=== PATIENT | female | born 1995 | race Caucasian/White ===

== ENCOUNTER 2017-10-08 07:53 | Emergency (ER) | payer BC, SELFPAY ==
--- NOTE | 2017-10-08 08:00 | DI.REPORT_ITS ---
SYMPTOM/DIAGNOSIS: PAIN LEFT WRIST: No fracture or dislocation is seen. IMPRESSION: Negative left wrist.
[2017-10-08 08:09] VITALS: BP 126/79; PULSE 89; RESP 16; TEMP 37; O2SAT 97
--- NOTE | 2017-10-08 08:34 | ED.GENADUL ---
Disposition Clinical Impression: Left wrist pain, rule out scaphoid fract Disposition: HOME Condition: Good Additional Instructions: As we discussed, we will keep your wrist immobilized pending orthopedic follow-up. Orthopedic office number is [phone]. Please call them Tuesday afternoon or Tuesday. Ice through the splint right reduce pain and swelling. Work note provided. Tylenol and/or ibuprofen as needed for pain. Return if he developed cold, blue, numbness or tingling of the fingertips, increasing pain, or any other acute concerns Forms: Work Release Medical Decision Making - Radiology Data Radiology results: image reviewed - Medical Decision Making 22-year-old female with fall and left wrist at work. Vital signs are unremarkable. She is tender in the radial aspect of her wrist, most specifically with axial loading of the thumb and resisted supination. X-ray does not show clear fracture, question slight fracture line on the oblique film, number 2 out of 3. Discussed with her management including immobilization with below the elbow thumb spica. We will have her follow-up with orthopedics. She is stable for discharge. Discussed with her home management as well as return precautions. History of Present Illness - General Chief complaint: Orthopedic Stated complaint: LEFT WRIST INJURY Time Seen by Provider: 10/08/17 08:32 Source: patient, RN notes reviewed Mode of arrival: ambulatory Limitations: no limitations - History of Present Illness Initial comments: Left wrist pain: 22-year-old female went to work this morning at local [employer]. Tripped, fell forward, landing on outstretched left hand. She had the immediate onset of a moderate, achy, nonradiating left wrist pain is been worse with movement, improved with rest. She did not have numbness, tingling, or injured herself in any other way. She has otherwise recently been well. - Related Data Control Pill DAILY 10/08/17 metFORMIN [Glucophage] 500 g PO BID 10/08/17 Allergies Allergy/AdvReac Type Severity Reaction Status Date / Time No Known Allergies Allergy Unverified 10/08/17 08:11 Review of Systems Other: 6 systems reviewed, otherwise negative Past Medical History - Past Medical History See nursing note General Exam - General Limitations: no limitations General appearance: alert, in no apparent distress - Head Head exam: Present: atraumatic, normocephalic - Respiratory Respiratory exam: Absent: respiratory distress - Extremities Exam Extremities exam: Present: full ROM, tenderness, normal capillary refill, other (Left wrist is tender across the metacarpals. She is most tender at the radial aspect of the wrist, with axial loading of the thumb, and with resisted supination. Sensation intact throughout. Motor is intact but limited by pain.) - Neurological Exam Neurological exam: Present: alert, oriented X3 - Psychiatric Psychiatric exam: Present: normal affect, normal mood - Skin Skin exam: Present: warm, dry, intact Course Vital Signs - 24 hr 10/08/17 08:09 Temperature 37 C Pulse 89 Respiratory 16 Rate Blood Pressure 126/79 Pulse Oximetry 97
--- NOTE | 2017-10-08 09:29 | DI.VRAD_ITS ---
EXAM: XR Left Wrist Complete, 3 or more Views EXAM DATE/TIME: 10/08/2017 8:24 AM CLINICAL HISTORY: 22 years old, female; Pain; Wrist; Left; Patient HX: Lt. Wrist pain after fall. TECHNIQUE: XR Left wrist 3 or more views. COMPARISON: CR - RIGHT THUMB 2012-05-21 07:42 FINDINGS: Bones/joints: Normal. Soft tissues: Normal. IMPRESSION: No acute findings. Dictated and Authenticated by: Noah Randle MD. Ordering:STEPHANE KIM MD
== END 2017-10-08 09:07 | disposition home or self-care (01) ==
PROVIDERS: Emergency Provider Emergency Medicine; PCP Family Medicine
DX: M25.532 Pain in left wrist (principal); W18.30XA Fall on same level, unspecified, initial encounter; Y99.0 Civilian activity done for income or pay
CPT/HCPCS: 29125; 99283; 73110; L3807

== ENCOUNTER 2018-05-25 15:03 | Emergency (ER) | payer BC, SELFPAY ==
[2018-05-25 15:18] VITALS: BP 154/87; PULSE 95; RESP 16; TEMP 36.7; O2SAT 98
--- NOTE | 2018-05-25 15:49 | W.ED.GENAD ---
Discharge Plan Disposition Patient Disposition: HOME Condition: Good Discharge Details Chief Complaint: Sorethroat Clinical Impression: Strep throat Primary Care Provider: Elise Edwadrs ED Provider: Arnel Barroso Home Meds and New Rx's Prescriptions: New amoxicillin 500 mg capsule 500 mg PO BID Qty: 14 RF: 0 No Action spironolactone 25 MG tablet 25 mg PO BID RF: 0 metformin 500 MG tablet 500 g PO BID RF: 0 Control Pill DAILY RF: 0 Discharge Instructions Instructions: Upper Respiratory Infection (ED) Additional Instructions: Please take the medication as directed. Take Tylenol and Motrin as needed for pain. If you notice any worsening of your symptoms, or any new symptoms such as vomiting, diarrhea, fever, chills, shortness of breath, chest pain, numbness, weakness, or fainting , please return immediately to the emergency department for reevaluation. Please follow up with your primary care provider as soon as possible for reassessment and reevaluation. As always, it was a pleasure participating in your medical care today. Referrals: Elise Edwards MD [Primary Care Provider] - Discharge Data Discharge Date/Time-TO BE ENTERED AT DEPARTURE: 05/25/18 16:33 Medical Decision Making This is a pleasant 22-year-old female with no significant past medical history who presents with complaint of sore throat for the last 2 days. No concerning red flags for peritonsillar abscess, airway compromise or other significant abnormality. Physical exam is otherwise unremarkable aside for erythema in the posterior oropharynx. Strep test is positive. She has no antibiotic allergies. We will prescribe amoxicillin for treatment of strep throat. We discussed red flags which to return, the importance of NSAIDs, and close follow-up. I have extensively reviewed the treatment plan and discharge instructions with the patient. I have addressed all patient concerns at this time. The patient was made aware of what symptoms to monitor for that would warrant a return to the emergency department. Discussed the plan with the patient, they demonstrate verbal understanding and agreement with our assessment and plan at this time. HPI General Date/Time Provider Initiated Documentation: 05/25/18 15:45. HPI Narrative: This is a pleasant 22-year-old female who presents with sore throat for the last 2 days. She is able to eat and drink well, mild pain with swallowing. She denies any headache, neck pain, fever, chills, nausea, vomiting, or diarrhea. She has no previous surgical history of tonsillectomy. She does admit to other sick contacts at her work. She denies any other complaints or modifying factors at this time. No IV or illicit drug use. No pertinent family history. Related Data Home Medications Medication Instructions Recorded Confirmed Control Pill DAILY 10/08/17 metformin 500 g PO BID 10/08/17 05/25/18 spironolactone 25 mg PO BID tab-cap 10/19/17 05/25/18 amoxicillin 500 mg PO BID #14 cap 05/25/18 Previous Rx's Medication Instructions Recorded amoxicillin 500 mg PO BID #14 cap 05/25/18 Allergies Allergy/AdvReac Type Severity Reaction Status Date / Time No Known Allergies Allergy Unverified 05/25/18 15:19 General Stated Complaint: Sorethroat CHRISTINE: 4 Review of Systems Review of Systems All systems reviewed & are unremarkable except as noted in HPI and below PFSH Social History Smoking/Tobacco Use Status: Never Drug use: Never Exam Narrative Exam Narrative: 1.Const: Well-nourished, Well-developed, appearing stated age 2.Eyes: PERRL, no conjunctival injection, and symmetrical lids. 3.ENT: Atraumatic external nose and ears. Moist MM. Neck: Symmetric, trachea midline, No thyromegaly. Mild erythema in the posterior oropharynx. Minimal tonsillar exudates. No evidence of peritonsillar abscess, or airway compromise. Patient demonstrates good movement of cervical neck. There is no nuchal rigidity, no nuchal tenderness. Patient is able to flex the neck without any difficulty or significant pain. Negative Kernig's and Brudzinski sign. Minimally tender anterior cervical lymphadenopathy 4.CVS: +S1/S2, No murmurs or gallops. Peripheral pulses 2+ and equal in all extremities. Brisk capillary refill in all extremities. 5.RESP: Unlabored respiratory effort. Clear to auscultation bilaterally. No wheezes rales or rhonchi 6.GI: Soft, Nontender/Nondistended, No hepatosplenomegaly. No guarding or rebound. 7.MSK: Normocephalic/Atraumatic, Extremities w/o deformity or ttp No cyanosis or clubbing, Normal movement of all extremities 8.Skin: Warm, Dry. No rashes or lesions. 9.Neuro: small products i assembler II-XII grossly intact. Sensation grossly intact, no focal neurologic deficits. 10.Psych: (AAO) x3. Appropriate mood and affect Course Vital Signs Temperature 36.7 C 05/25/18 15:18 Pulse 95 H 05/25/18 15:18 Respiratory Rate 16 05/25/18 15:18 Blood Pressure 154/87 H 05/25/18 15:18 Pulse Oximetry 98 05/25/18 15:18 Temperature 36.7 C 05/25/18 15:18 Temperature Source Skin 05/25/18 15:18 Pulse 95 H 05/25/18 15:18 Respiratory Rate 16 05/25/18 15:18 Respiratory Effort Non-Labored 05/25/18 15:18 Blood Pressure 154/87 H 05/25/18 15:18 Blood Pressure Position Sitting 05/25/18 15:18 Pulse Oximetry 98 05/25/18 15:18 Oxygen Delivery Method Room Air 05/25/18 15:18 Oxygen Flow Rate 0 05/25/18 15:18 Pain Level 7 05/25/18 15:18 Lab/Test Results Lab/Test Results: POC Strep Test-KIANA(Rapid) Start: 05/25/18 15:32 Freq: .Rapid Strep Test Status: Active Protocol: Document 05/25/18 15:32 SS (Rec: 05/25/18 15:32 SS [email or web address]) Strep test-KIANA(Rapid)-POC POC-Strep test-KIANA (Rapid) Positive POC-Strep test-KIANA (Rapid) Positive
== END 2018-05-25 16:33 | disposition home or self-care (01) ==
PROVIDERS: Emergency Provider Student in an Organized Health Care Education/Training Program; PCP Family Medicine
DX: J02.0 Streptococcal pharyngitis (principal)
CPT/HCPCS: 87880; 99283

== ENCOUNTER 2018-06-20 16:57 | Outpatient (REF) | payer BC, SELFPAY ==
[2018-06-20 19:04] LABS: Hemoglobin A1C 6.3 % (4.5-6.2)
[2018-06-20 19:13] LABS: TSH 1.24 uIU/mL (0.358-3.74)
== END 2018-06-20 17:17 ==
LOC: NCHCN 16:57
PROVIDERS: PCP Family Medicine; Visit Provider Nurse Practitioner Family
DX: Z00.00 Encounter for general adult medical examination without abnormal findings (principal); E28.2 Polycystic ovarian syndrome; R03.0 Elevated blood-pressure reading, without diagnosis of hypertension; L68.0 Hirsutism; E11.9 Type 2 diabetes mellitus without complications
CPT/HCPCS: 83036; 84443

== ENCOUNTER 2018-09-19 15:52 | Outpatient (CLI) | payer BC, SELFPAY ==
--- NOTE | 2018-09-19 15:30 | NS.NUTBLAN_ITS ---
DESCRIPTION: Rashmi Lees presents for nutrition consult for elevated blood glucose. A1c 6.3 States he weight has been stable for the past month. She believes she is ~240 pounds now. Her concern is that she wants to be able to keep up with the kids. Rashmi admits to being a stress eating with habit of going to junk food with stress. She states she was able to prevent weight gain in high school because she was active with sports, however now she does not play sports. She eats health from the food groups with plenty of fruit and vegetables. 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 INTERVENTION: Explained DPP with goal of 7% weight loss and 150 minutes physical activity per week. Discussed stress management; point of purchase influences; physical activity options; healthy eating patterns. ACTION: Rashmi will: journal food and feelings; walk 1 mile 3 days a week; think about a mantra to use when stressed. We will be in touch by telephone.
== END 2018-09-19 16:12 ==
PROVIDERS: PCP Family Medicine; Visit Provider Nurse Practitioner Family
DX: R73.01 Impaired fasting glucose (principal); E66.09 Other obesity due to excess calories; Z71.3 Dietary counseling and surveillance
CPT/HCPCS: 97802

== ENCOUNTER 2019-04-26 07:38 | Outpatient (CLI) | payer BC, SELFPAY ==
[2019-04-26 08:38] LABS: ALT 54 U/L (14-59); AST 36 U/L (15-37); Albumin 3.6 g/dL (3.4-5.0); Alkaline Phosphatase 55 U/L (46-116); Anion Gap 12.3 mmol/L (3-11); BUN 11 mg/dL (7-18); Bilirubin, Total 0.2 mg/dL (0.2-1.0); CO2 24.7 mmol/L (21.0-32.0); CREATININE 0.76 mg/dL (0.55-1.02); Calcium 9.1 mg/dL (8.5-10.1); Chloride 102 mmol/L (98-107); Cholesterol 190 mg/dL (<200); Glucose 116 mg/dL (74-106); HDL Cholesterol 50 mg/dL (40-60); Potassium 4.5 mmol/L (3.5-5.1); Sodium 139 mmol/L (136-145); Total Protein 6.8 g/dL (6.4-8.2); Triglyceride 445 mg/dL (<150)
[2019-04-26 09:33] LABS: LDL CHOLESTEROL 85 mg/dL (<100)
== END 2019-04-26 07:58 ==
PROVIDERS: PCP Nurse Practitioner Family; Visit Provider Nurse Practitioner Family
DX: E11.9 Type 2 diabetes mellitus without complications (principal); Z68.41 Body mass index [BMI] 40.0-44.9, adult
CPT/HCPCS: 36415; 80053; 80061; 83721

== ENCOUNTER 2019-05-14 15:32 | Outpatient (CLI) | payer BC, SELFPAY ==
[2019-05-14 16:29] LABS: Anion Gap 12.9 mmol/L (3-11); BUN 10 mg/dL (7-18); CO2 24.1 mmol/L (21.0-32.0); CREATININE 0.82 mg/dL (0.55-1.02); Chloride 101 mmol/L (98-107); Glucose 145 mg/dL (74-106); Potassium 3.7 mmol/L (3.5-5.1); Sodium 138 mmol/L (136-145)
== END 2019-05-14 15:52 ==
PROVIDERS: PCP Nurse Practitioner Family; Visit Provider Student in an Organized Health Care Education/Training Program
DX: E28.2 Polycystic ovarian syndrome (principal)
CPT/HCPCS: 36415; 80048

== ENCOUNTER 2019-12-21 19:05 | Outpatient (REF) | payer BC, SELFPAY ==
[2019-12-25 23:52] LABS: Patient Race White; SARS-CoV-2 RNA Undetected (Undetected); SARS-CoV-2 Specimen Source Nasal
== END 2019-12-21 19:25 ==
LOC: NCHCN 19:05
PROVIDERS: PCP Nurse Practitioner Family; Visit Provider Nurse Practitioner Family
DX: Z11.59 Encounter for screening for other viral diseases (principal)
CPT/HCPCS: U0003

== ENCOUNTER 2021-06-16 15:26 | Outpatient (REF) | payer BC, SELFPAY ==
--- NOTE | 2021-06-16 11:45 | PAPFT_PTH ---
PATIENT: Rashmi Lees LOC: [facility] U#:[id number] AGE/SX: 25/F ROOM: RE06/16/[address]: Neeta Mar : 1995 BED: DIS: 06/16/2021 SPEC #: [id number] RECD: 06/16/21 17:37 STATUS: MERA REAnn #: [id number] JENY: 06/16/21 11:[address]: Neeta Mar DEPT: [facility] [place] Cytology RECD BY: Hazel Rodriguez Tissues: 1 - CX/ENDOCX FOR PAP SMEARS Procedures: PAP THIN PREP/UVM Screening Comments: [id number]
[2021-06-16 18:17] LABS: Anion Gap 10.8 mmol/L (3-11); BUN 11 mg/dL (7-18); CO2 24.2 mmol/L (21.0-32.0); CREATININE 0.8 mg/dL (0.55-1.02); Calcium 9.6 mg/dL (8.5-10.1); Chloride 104 mmol/L (98-107); Glucose 128 mg/dL (74-106); Potassium 4.1 mmol/L (3.5-5.1); Sodium 139 mmol/L (136-145)
== END 2021-06-16 15:27 | disposition home or self-care (01) ==
LOC: NCHCN 15:26
PROVIDERS: PCP Nurse Practitioner Family; Visit Provider Nurse Practitioner Family
DX: E11.9 Type 2 diabetes mellitus without complications (principal); I10 Essential (primary) hypertension; Z00.00 Encounter for general adult medical examination without abnormal findings; Z12.4 Encounter for screening for malignant neoplasm of cervix
CPT/HCPCS: 80048; 88142

== ENCOUNTER 2022-11-26 18:47 | Outpatient (REF) | payer BC, SELFPAY ==
[2022-11-26 19:28] LABS: ALT 56 U/L (14-59); AST 50 U/L (15-37); Albumin 3.6 g/dL (3.4-5.0); Alkaline Phosphatase 45 U/L (46-116); Anion Gap 11.6 mmol/L (3-11); BUN 12 mg/dL (7-18); Bilirubin, Total 0.2 mg/dL (0.2-1.0); CO2 23.4 mmol/L (21.0-32.0); CREATININE 0.8 mg/dL (0.55-1.02); Calcium 9.9 mg/dL (8.5-10.1); Calculated LDL 3 mg/dL (<100); Chloride 98 mmol/L (98-107); Cholesterol 114 mg/dL (<200); Estimated GFR 102.22 (mL/min/1.73m2); Glucose 137 mg/dL (74-106); HDL Cholesterol 54 mg/dL (40-60); Sodium 133 mmol/L (136-145); Total Protein 7.5 g/dL (6.4-8.2); Triglyceride 289 mg/dL (<150)
== END 2022-11-26 18:48 | disposition home or self-care (01) ==
LOC: NCHCN 18:47
PROVIDERS: PCP Nurse Practitioner Family; Visit Provider Nurse Practitioner Family
DX: E11.9 Type 2 diabetes mellitus without complications (principal); E78.1 Pure hyperglyceridemia; I10 Essential (primary) hypertension
CPT/HCPCS: 80053; 80061

== ENCOUNTER 2023-03-29 07:30 | Emergency (ER) | payer OTHER, BC, SELFPAY ==
[2023-03-29] VITALS (13 sets, daily range): BP systolic 133–187; BP diastolic 67–105; PULSE 100–114; RESP 15–28; TEMP 36.9; O2SAT 96
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
[2023-03-29] MEDS: Acetaminophen 500 MG TAB 1000 MG PO (07:34)
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
== END 2023-03-29 09:14 | disposition home or self-care (01) ==
LOC: ER 13:42
PROVIDERS: Emergency Provider Student in an Organized Health Care Education/Training Program; PCP Nurse Practitioner Family
DX: S13.4XXA Sprain of ligaments of cervical spine, initial encounter (principal); M25.512 Pain in left shoulder; R73.03 Prediabetes; V49.9XXA Car occupant (driver) (passenger) injured in unspecified traffic accident, initial encounter
CPT/HCPCS: 71250; 99284; 70450; 72125; 99283

== ENCOUNTER 2024-03-29 14:22 | Outpatient (REF) | payer BC, SELFPAY ==
[2024-03-29 19:19] LABS: Abs Immature Grans 0.03 10^3/uL (0.0-0.06); Absolute Basophil Count 0.04 10^3/uL (0.0-0.2); Absolute Eosinophil Count 0.22 10^3/uL (0.0-0.7); Absolute Lymphocyte Count 3.68 10^3/uL (1.2-3.4); Absolute Monocyte Count 0.75 10^3/uL (0.1-0.8); Absolute Neutrophil Count 5.91 10^3/uL (1.2-6.7); Basophils % 0.4 %; Eosinophils % 2.1 %; HCT 41.1 % (36.0-46.0); HGB 13.6 g/dL (11.2-15.7); Immature Grans % 0.3 %; Lymphocytes % 34.6 %; MCH 28.4 pg (27.0-33.0); MCHC 33.1 % (32.0-36.0); MCV 86 fL (80-95); MPV 10.3 fL (8.0-11.0); Monocytes % 7.1 %; Neutrophils % 55.5 %; Platelet Count 275 10^3/uL (130-400); RBC 4.79 10^6/uL (3.93-5.22); RDW 13.1 % (11.7-14.6); RDW-SD 40.4 fL; WBC 10.63 10^3/uL (4.4-10.8)
[2024-03-29 19:27] LABS: COMMENT (LAB VIEW ONLY) 109.57 mg/dL
[2024-03-29 19:46] LABS: ALT 34 U/L (14-59); AST 26 U/L (15-37); Albumin 3.4 g/dL (3.4-5.0); Alkaline Phosphatase 43 U/L (46-116); Anion Gap 9.8 mmol/L (3-11); BUN 9 mg/dL (7-18); CO2 27.2 mmol/L (21.0-32.0); CREATININE 0.8 mg/dL (0.55-1.02); Calcium 9.5 mg/dL (8.5-10.1); Calculated LDL 44 mg/dL (<100); Chloride 103 mmol/L (98-107); Cholesterol 164 mg/dL (<200); Estimated GFR 101.59 (mL/min/1.73m2); Glucose 118 mg/dL (74-106); HDL Cholesterol 57 mg/dL (40-60); Potassium 4.3 mmol/L (3.5-5.1); Sodium 140 mmol/L (136-145); TSH (W/Ref FT4) 1.56 uIU/mL (0.36-3.74); Total Protein 7.3 g/dL (6.4-8.2); Triglyceride 318 mg/dL (<150)
== END 2024-03-29 14:23 | disposition home or self-care (01) ==
LOC: NCHCN 14:22
PROVIDERS: Visit Provider Nurse Practitioner Family
DX: E11.9 Type 2 diabetes mellitus without complications (principal); Z68.41 Body mass index [BMI] 40.0-44.9, adult; E78.2 Mixed hyperlipidemia; F41.8 Other specified anxiety disorders; E66.9 Obesity, unspecified; I10 Essential (primary) hypertension
CPT/HCPCS: 80053; 80061; 82043; 82570; 84443; 85025